=== PATIENT | male | born 1990 | race Two or more races ===

== ENCOUNTER 2017-09-15 03:59 | Emergency (ER) | payer SELFPAY ==
[~2017-09-15] VITALS: Ht 177.8 cm; Wt 93.0 kg
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
[2017-09-15 04:39] VITALS: BP 124/82
[2017-09-15] MEDS ORDERED: LIDOCAINE WITH 8.4% SOD BICARB 3 ML DISP.SYRIN. IJ ONE (05:00)
[2017-09-15] MEDS ORDERED: DIPHTH,PERTUSS(ACELL),TET TOX 0.5 ML DISP.SYRIN. VAX IM ONE (05:00)
== END 2017-09-15 05:00 | disposition home or self-care (01) ==
LOC: ER 03:59
DX: S11.91XA Laceration without foreign body of unspecified part of neck, initial encounter (principal); S61.011A Laceration without foreign body of right thumb without damage to nail, initial encounter; X99.1XXA Assault by knife, initial encounter; Y93.89 Activity, other specified; Y92.89 Other specified places as the place of occurrence of the external cause; Y99.8 Other external cause status
CPT/HCPCS: 12002; 90471; 90715; 99283-25

== ENCOUNTER 2017-09-22 10:10 | Emergency (ER) | payer SELFPAY | END 2017-09-22 11:14 | disposition home or self-care (01) | LOC: ER 10:10 | DX: S11.91XD Laceration without foreign body of unspecified part of neck, subsequent encounter (principal); S61.411D Laceration without foreign body of right hand, subsequent encounter; X58.XXXD Exposure to other specified factors, subsequent encounter | CPT/HCPCS: 99282 ==

== ENCOUNTER 2021-09-02 03:28 | Emergency (ER) | payer SELFPAY ==
[2017-09-22 10:34] VITALS: BP 122/78
== END 2021-09-02 03:53 | disposition left against medical advice (07) ==
LOC: ER 03:28
DX: T15.92XA Foreign body on external eye, part unspecified, left eye, initial encounter (principal); T15.91XA Foreign body on external eye, part unspecified, right eye, initial encounter; Z53.21 Procedure and treatment not carried out due to patient leaving prior to being seen by health care provider; X58.XXXA Exposure to other specified factors, initial encounter; Y93.89 Activity, other specified; Y92.89 Other specified places as the place of occurrence of the external cause; Y99.8 Other external cause status